=== PATIENT | male | born 1965 | race Two or more races ===

== ENCOUNTER 2018-10-10 07:47 | Emergency (ER) | payer MEDICAID, OTHER ==
[2018-10-10 07:47] VITALS: BMI 29.5
[2018-10-10 08:28] LABS: URINE BILIRUBIN NEGATIVE (NEGATIVE); URINE BLOOD NEGATIVE (NEGATIVE); URINE CLARITY Clear (Clear); URINE COLOR Yellow (YELLOW); URINE GLUCOSE (UA) NORMAL (Normal); URINE LEUKOCYTE ESTERASE NEG Leu/uL (Negative); URINE PROTEIN NEGATIVE (NEGATIVE); URINE UROBILINOGEN NORMAL mg/dL (0.2-1.0)
[2018-10-10] MEDS ORDERED: Iodixanol 320 MG/ML 100 ML BOTTLE IV ONE (09:14)
[2018-10-10 09:19] LABS: BASO # 0.1 K/uL (0.0-0.2); BASO % 0.8 % (0.0-2.0); EOS # 0.2 K/uL (0.0-0.7); EOS % 2.5 % (0.0-4.0); HEMOGLOBIN 15.4 g/dL (12.0-18.0); LYMPH # 1.4 K/uL (1.0-4.3); LYMPH % 22.8 % (20.0-40.0); MEAN CELL VOLUME 85.9 fL (80.0-94.0); MEAN CORPUSCULAR HEMOGLOBIN 29.2 pg (27.0-31.0); MEAN PLATELET VOLUME 7.6 fL (7.2-11.7); MONO # 0.6 K/uL (0.0-0.8); MONO % 9.7 % (0.0-10.0); NEUT % 64.2 % (50.0-75.0); RBC 5.28 Mil/uL (4.40-5.90); RED CELL DISTRIBUTION WIDTH 13.3 % (11.5-14.5); WHITE BLOOD COUNT 6.3 K/uL (4.8-10.8)
[2018-10-10 09:32] LABS: PROTHROMBIN TIME 11.3 SECONDS (9.7-12.2)
--- NOTE | 2018-10-10 09:32 | C.PDOC ---
History Of Present Illness 53 y/o male with history of HTN and DM presents to ED with c/o abdominal pain for 7 months. Patient states pain initially on right flank but now on left flank for 2 months and worse for 3 weeks. Patient admits to nausea and reports recent "white in color" stool. Patient was recently incarcerated and could not seek further medical evaluation, currently denies fever, chills, chest pain, sob, weight loss or any other complaints at this time. Time Seen by Provider: 10/10/18 08:01 Chief Complaint (Nursing): Abdominal Pain History Per: Patient History/Exam Limitations: no limitations Onset/Duration Of Symptoms: Days Current Symptoms Are (Timing): Still Present Past Medical History Reviewed: Historical Data, Nursing Documentation, Vital Signs Vital Signs: Last Vital Signs Temp 97.5 F L 10/10/18 07:52 Pulse 84 10/10/18 07:52 Resp 18 10/10/18 07:52 BP 144/98 H 10/10/18 07:52 Pulse Ox 99 10/10/18 07:52 - Medical History PMH: Diabetes, HTN, Hypercholesterolemia Surgical History: No Surg Hx - [facility] Procedures COLONOSCOPY (06/05/13) Family History: States: No Known Family Hx - Social History Hx Alcohol Use: No Hx Substance Use: No - Immunization History Hx Tetanus Toxoid Vaccination: No Hx Influenza Vaccination: Yes Hx Pneumococcal Vaccination: Yes Review Of Systems Except As Marked, All Systems Reviewed And Found Negative. Constitutional: Negative for: Fever, Chills Cardiovascular: Negative for: Chest Pain Respiratory: Negative for: Cough, Shortness of Breath Gastrointestinal: Positive for: Nausea, Abdominal Pain. Negative for: Vomiting, Diarrhea Physical Exam - Physical Exam Additional Physical Exam Comments: Constitutional: No acute distress. Obese Head: Normocephalic. Atraumatic. Eyes: PERRL. ENT: Moist mucous membranes. Neck: Supple. Cardiovascular: Regular rate. Radial pulse 2+ bilaterally. Chest: No tenderness. Respiratory: Clear to auscultation bilaterally. GI: Soft. LUQ tenderness. No guarding or rebound Back: No CVA tenderness. Musculoskeletal: No tenderness or swelling of extremities. Skin: No rash. Neurologic: Alert, no focal deficit. ED Course And Treatment - Laboratory Results Result Diagrams: 10/10/18 09:10 10/10/18 09:10 O2 Sat by Pulse Oximetry: 99 (RA) Pulse Ox Interpretation: Normal Medical Decision Making Medical Decision Making: Plan: CT abd/pelvis with IV contrast, Blood work, UA ordered Abdomen Ultrasound IMPRESSION: Limited study. Echogenic liver may be seen in setting of hepatic parenchymal disease or fatty infiltration. Cholelithiasis. Gallbladder wall appears top normal in thickness. Negative sonographic Goodman's sign as assessed by the operator command support systems. Accession No. : [id number] Patient Name / ID : DANIEL RODRIGUEZ / [id number] Exam Date : 10/10/2018 11:17:26 ( Approved ) Study Comment : Sex / Age : M / 53Y Creator : Norma Jhaveri Dictator : Maggi Mitchell MD Bar Staff : Retail Sales Associate Seasonal : Maggi Mitchell MD Approver2 : Report Date : 10/10/2018 11:29:38 My Comment : Date of service: 10/10/2018 PROCEDURE: CT Abdomen and Pelvis with contrast HISTORY: abd pain, nausea COMPARISON: None available. TECHNIQUE: Contrast dose: 100 mL Visipaque IV Radiation dose: Total exam DLP = 992.98 mGy-cm. This CT exam was performed using one or more of the following dose reduction techniques: Automated exposure control, adjustment of the mA and/or kV according to patient size, and/or use of iterative reconstruction technique. FINDINGS: LOWER THORAX: No visible consolidation, pleural effusion, or pneumothorax. LIVER: Unremarkable. GALLBLADDER AND BILE DUCTS: Punctate calcified gallstone. Mild gallbladder wall thickening/pericholecystic edema. PANCREAS: Unremarkable. SPLEEN: Unremarkable. ADRENALS: Unremarkable. KIDNEYS AND URETERS: The kidneys enhance symmetrically. No hydronephrosis or obstructing calculus owen ntified. VASCULATURE: No aortic aneurysm. Atherosclerotic calcification of the aorta. BOWEL: Stomach is nondistended. Lack of oral contrast limits evaluation for bowel pathology. Bowel loops appear within normal limits of caliber without evidence of obstruction. Diverticulosis without CT evidence of acute diverticulitis. APPENDIX: The appendix appears within normal limits of caliber. No secondary signs of acute appendicitis. PERITONEUM: No significant free fluid. No definite free air. LYMPH NODES: No bulky adenopathy identified. BLADDER: Unremarkable. REPRODUCTIVE: Unremarkable. BONES: Degenerative changes of the spine. OTHER FINDINGS: None. IMPRESSION: Punctate calcified gallstone. Mild gallbladder wall thickening/edema. Correlate clinically and if indicated, recommend right upper quadrant ultrasound for further evaluation. Discharged home, f/u PMD, return to ED for worsening pain, fever, vomiting, dyspnea, or any other problem. Disposition - Disposition Referrals: Dee Lofton MD [Non-Staff] - Disposition Time: 13:27 Condition: STABLE Additional Instructions: Accession No. : [id number] Patient Name / ID : DANIEL RODRIGUEZ / [id number] Exam Date : 10/10/2018 11:17:26 ( Approved ) Study Comment : Sex / Age : M / 53Y Creator : Norma Jhaveri Dictator : Maggi Mitchell MD Bar Staff : Retail Sales Associate Seasonal : Maggi Mitchell MD Approver2 : Report Date : 10/10/2018 11:29:38 My Comment : Date of service: 10/10/2018 PROCEDURE: CT Abdomen and Pelvis with contrast HISTORY: abd pain, nausea COMPARISON: None available. TECHNIQUE: Contrast dose: 100 mL Visipaque IV Radiation dose: Total exam DLP = 992.98 mGy-cm. This CT exam was performed using one or more of the following dose reduction techniques: Automated exposure control, adjustment of the mA and/or kV according to patient size, and/or use of iterative reconstruction technique. FINDINGS: LOWER THORAX: No visible consolidation, pleural effusion, or pneumothorax. LIVER: Unremarkable. GALLBLADDER AND BILE DUCTS: Punctate calcified gallstone. Mild gallbladder wall thickening/pericholecystic edema. PANCREAS: Unremarkable. SPLEEN: Unremarkable. ADRENALS: Unremarkable. KIDNEYS AND URETERS: The kidneys enhance symmetrically. No hydronephrosis or obstructing calculus identified. VASCULATURE: No aortic aneurysm. Atherosclerotic calcification of the aorta. BOWEL: Stomach is nondistended. Lack of oral contrast limits evaluation for bowel pathology. Bowel loops appear within normal limits of caliber without evidence of obstruction. Diverticulosis without CT evidence of acute diverticulitis. APPENDIX: The appendix appears within normal limits of caliber. No secondary signs of acute appendicitis. PERITONEUM: No significant free fluid. No definite free air. LYMPH NODES: No bulky adenopathy identified. BLADDER: Unremarkable. REPRODUCTIVE: Unremarkable. BONES: Degenerative changes of the spine. OTHER FINDINGS: None. IMPRESSION: Punctate calcified gallstone. Mild gallbladder wall thickening/edema. Correlate clinically and if indicated, recommend right upper quadrant ultrasound for further evaluation. Accession No. : [id number] Patient Name / ID : DANIEL RODRIGUEZ / [id number] Exam Date : 10/10/2018 12:15:24 ( Approved ) Study Comment : Sex / Age : M / 53Y Creator : Maggi Mitchell MD Dictator : Maggi Mitchell MD Bar Staff : Retail Sales Associate Seasonal : Maggi Mitchell MD Approver2 : Report Date : 10/10/2018 13:13:20 My Comment : Date of service: 10/10/2018 HISTORY: RUQ pain COMPARISON: CT abdomen and pelvis with IV contrast performed 10/10/18 TECHNIQUE: Sonographic evaluation of the right upper quadrant of the abdomen. FINDINGS: Examination limited by bowel gas and habitus. LIVER: Measures 16.8 cm in length. Echogenic liver may be seen in setting of hepatic parenchymal disease or fatty infiltration. No focal hepatic mass identified. The main portal vein appears patent with normal directional flow. No intrahepatic bile duct dilatation. GALLBLADDER: Gallstones. Gallbladder appears top normal in thickness. Negative sonographic Goodman's sign as assessed by the operator command support systems. COMMON BILE DUCT: Measures 4 mm. PANCREAS: Not well-visualized. RIGHT KIDNEY: Measures approximately 11.0 x 5.8 x 4.9 cm. No obstructing calculus or hydronephrosis identified. AORTA: Limited visualization appears grossly unremarkable. IVC: Limited visualization appears grossly unremarkable. OTHER FINDINGS: None . IMPRESSION: Limited study. Echogenic liver may be seen in setting of hepatic parenchymal disease or fatty infiltration. Cholelithiasis. Gallbladder wall appears top normal in thickness. Negative sonographic Goodman's sign as assessed by the operator command support systems. Instructions: Acute Abdomen (Belly Pain) Forms: AppSheet (Kosovan) - Clinical Impression Clinical Impression: Abdominal pain - Scribe Statement The provider has reviewed the documentation as recorded by the Cathrynibbillie Carpenter All medical record entries made by the Tra were at my direction and personally dictated by me. I have reviewed the chart and agree that the record accurately reflects my personal performance of the history, physical exam, medical decision making, and the department course for this patient. I have also personally directed, reviewed, and agree with the discharge instructions and disposition.
[2018-10-10 09:44] LABS: ALB/GLOB RATIO 1.4 (1.0-2.1); ALBUMIN 4.3 g/dL (3.5-5.0); ALT/SGPT 333 U/L (21-72); AST/SGOT 123 U/L (17-59); BILIRUBIN,DIRECT 0.8 mg/dL (0.0-0.4); BLOOD UREA NITROGEN 18 mg/dL (9-20); CALCIUM 9.4 mg/dl (8.6-10.4); GFR NON-AFRICAN AMERICAN > 60; LIPASE 179 U/L (23-300)
[2018-10-10 10:52] VITALS: RESP 20
--- NOTE | 2018-10-10 11:49 | CT ---
Date of service: 10/10/2018 PROCEDURE: CT Abdomen and Pelvis with contrast HISTORY: abd pain, nausea COMPARISON: None available. TECHNIQUE: Contrast dose: 100 mL Visipaque IV Radiation dose: Total exam DLP = 992.98 mGy-cm. This CT exam was performed using one or more of the following dose reduction techniques: Automated exposure control, adjustment of the mA and/or kV according to patient size, and/or use of iterative reconstruction technique. FINDINGS: LOWER THORAX: No visible consolidation, pleural effusion, or pneumothorax. LIVER: Unremarkable. GALLBLADDER AND BILE DUCTS: Punctate calcified gallstone. Mild gallbladder wall thickening/pericholecystic edema. PANCREAS: Unremarkable. SPLEEN: Unremarkable. ADRENALS: Unremarkable. KIDNEYS AND URETERS: The kidneys enhance symmetrically. No hydronephrosis or obstructing calculus identified. VASCULATURE: No aortic aneurysm. Atherosclerotic calcification of the aorta. BOWEL: Stomach is nondistended. Lack of oral contrast limits evaluation for bowel pathology. Bowel loops appear within normal limits of caliber without evidence of obstruction. Diverticulosis without CT evidence of acute diverticulitis. APPENDIX: The appendix appears within normal limits of caliber. No secondary signs of acute appendicitis. PERITONEUM: No significant free fluid. No definite free air. LYMPH NODES: No bulky adenopathy identified. BLADDER: Unremarkable. REPRODUCTIVE: Unremarkable. BONES: Degenerative changes of the spine. OTHER FINDINGS: None. IMPRESSION: Punctate calcified gallstone. Mild gallbladder wall thickening/edema. Correlate clinically and if indicated, recommend right upper quadrant ultrasound for further evaluation.
--- NOTE | 2018-10-10 13:18 | US ---
Date of service: 10/10/2018 HISTORY: RUQ pain COMPARISON: CT abdomen and pelvis with IV contrast performed 10/10/18 TECHNIQUE: Sonographic evaluation of the right upper quadrant of the abdomen. FINDINGS: Examination limited by bowel gas and habitus. LIVER: Measures 16.8 cm in length. Echogenic liver may be seen in setting of hepatic parenchymal disease or fatty infiltration. No focal hepatic mass identified. The main portal vein appears patent with normal directional flow. No intrahepatic bile duct dilatation. GALLBLADDER: Gallstones. Gallbladder appears top normal in thickness. Negative sonographic Goodman's sign as assessed by the donor recruiter. COMMON BILE DUCT: Measures 4 mm. PANCREAS: Not well-visualized. RIGHT KIDNEY: Measures approximately 11.0 x 5.8 x 4.9 cm. No obstructing calculus or hydronephrosis identified. AORTA: Limited visualization appears grossly unremarkable. IVC: Limited visualization appears grossly unremarkable. OTHER FINDINGS: None . IMPRESSION: Limited study. Echogenic liver may be seen in setting of hepatic parenchymal disease or fatty infiltration. Cholelithiasis. Gallbladder wall appears top normal in thickness. Negative sonographic Goodman's sign as assessed by the donor recruiter.
[2018-10-10 13:57] VITALS: BP 125/90; PULSE 86; TEMP 98.1; O2SAT 97
== END 2018-10-10 14:18 | disposition home or self-care (01) ==
LOC: C.ER 07:47
DX: R10.9 Unspecified abdominal pain (principal); I10 Essential (primary) hypertension; E11.9 Type 2 diabetes mellitus without complications; E78.00 Pure hypercholesterolemia, unspecified
CPT/HCPCS: 74177; 76705; 80053; 81001; 82248; 83690; 85025; 85610; 85730; 86850; 86900; 87086; 99285; Q9967

== ENCOUNTER 2019-03-20 06:43 | Day surgery (SDC) | payer SELFPAY ==
[2019-03-19 09:59] VITALS: BMI 29.2
--- NOTE | 2019-03-20 07:28 | CP.SDSHP ---
<Renny Daly - Last Filed: 03/20/19 07:24> Same Day Surgery H & P - History Proposed Procedure: colonoscopy Pre-Op Diagnosis: rectal bleeding. change in bowel habit. abd pain - Previous Medical/Surgical History Cardiac: Hypertension Endocrine/Metabolic: Diabetes Comments: HL Previous Surgical History: rotator cuff. knee athroscopy - Allergies Allergies: Allergies olmesartan [From Benicar] Allergy (Verified 10/10/18 07:56) - Current Medications Current Medications: metformin losartan simvastatin lexapro trazadone - Physical Exam General Appearance: no acute distress Mental Status: Alert & Oriented x3 Neuro: WNL Heart: WNL Lungs: WNL GI: WNL - {Optional Preform as Required} Abdomen: WNL - Impression Impression: rectal bleeding. change in bowel habit. abd pain Pt. Evaluated Today:Candidate for Anesthesia & Procedure: Yes - Date & Time Date: 03/20/19 Time: 07:15 Short Stay Discharge - Short Stay Discharge Admitting Diagnosis/Reason for Visit: MELENA / CHANGE IN BOWEL HABIT Disposition: HOME/ ROUTINE <Cecil Hartman - Last Filed: 03/20/19 08:37> Same Day Surgery H & P - Allergies Allergies: Allergies olmesartan [From Benicar] Allergy (Verified 10/10/18 07:56) - Physical Exam Vital Signs: Vital Signs 03/20/19 03/20/19 07:00 08:12 Temperature 97.2 F L 97.2 F L Pulse Rate 80 79 Respiratory 20 13 Rate Blood Pressure 135/99 H 111/78 O2 Sat by Pulse 100 100 Oximetry Attending/Attestation - Attestation I have personally seen and examined this patient.: Yes I have fully participated in the care of the patient.: Yes I have reviewed all pertinent clinical information: Yes Notes (Text): 03/20/19 08:37 patient with rectal bleeding and h/o polyps. Colonoscopy planned. Risks/benefits discussed and accepted.
[2019-03-20] MEDS ORDERED: Lactated Ringer's 500 ML IV ONE (08:10)
[2019-03-20] MEDS ORDERED: Propofol 10 mg/ml Inj (20 ML) ONE ×2 (08:13)
[2019-03-20] MEDS ORDERED: Lidocaine Hydrochloride 5 ML INJ ONE (08:13)
[2019-03-20 09:00] VITALS: TEMP 97.8
[2019-03-20 09:38] VITALS: RESP 12
[2019-03-20 10:02] VITALS: BP 109/77; PULSE 74; O2SAT 95
== END 2019-03-20 09:55 | disposition home or self-care (01) ==
LOC: C.ENDO 06:43
PROVIDERS: ATTEND Internal Medicine Gastroenterology
DX: K92.1 Melena (principal); R19.4 Change in bowel habit; Z86.010 Personal history of colon polyps; K57.30 Diverticulosis of large intestine without perforation or abscess without bleeding; D12.5 Benign neoplasm of sigmoid colon; K64.8 Other hemorrhoids
CPT/HCPCS: 45380; 82948; 88305; J2704; J3010; J7120